=== PATIENT | male | born 1980 | race Caucasian/White ===

== ENCOUNTER 2017-11-15 10:35 | Emergency (ER) | payer MEDICAID ==
[2017-11-15] MEDS ORDERED: fentaNYL 100 MCG/2 ML SDV IM ONE (10:48)
[2017-11-15] MEDS ORDERED: Cyclobenzaprine 10 MG Tab PO ONE (10:48)
--- NOTE | 2017-11-15 10:51 | EDM.PDOC ---
ED HPI GENERAL MEDICAL PROBLEM - General Chief Complaint: Back Pain or Injury Stated Complaint: MEDICAL Time Seen by Provider: 11/15/17 10:45 Source of Information: Reports: Patient, RN Notes Reviewed History Limitations: Reports: No Limitations - History of Present Illness INITIAL COMMENTS - FREE TEXT/NARRATIVE: 37-year-old gentleman brought in by EMS services day for new onset of back pain , he has a history of chronic back pain secondary to lifting injury, the for this particular event he lifted the gait on a trailer sudden onset of back pain predominately on the right side with pain shooting down into the right foot. Uses a combination of Robaxin and naproxen for pain control. Received Toradol during his last exacerbation which did not provide any relief - Related Data Allergies Allergy/AdvReac Type Severity Reaction Status Date / Time No Known Allergies Allergy Verified 11/15/17 10:45 Home Meds: Home Meds Methocarbamol [Robaxin] 500 mg PO BID 11/15/17 [History] Naproxen [Naprosyn] 500 mg PO BID 11/15/17 [History] Past Medical History Musculoskeletal History: Reports: Back Pain, Chronic Social & Family History - Tobacco Use Smoking Status *Q: Never Smoker ED ROS GENERAL - Review of Systems Review Of Systems: See Below Constitutional: Reports: No Symptoms GI/Abdominal: Reports: No Symptoms : Reports: No Symptoms Musculoskeletal: Reports: Back Pain Neurological: Reports: Numbness, Tingling ED EXAM,LOWER BACK PAIN/INJURY - Physical Exam Exam: See Below Exam Limited By: No Limitations General Appearance: Alert, WD/WN, Moderate Distress Respiratory/Chest: No Respiratory Distress Back Exam: Decreased Range of Motion, Muscle Spasm, Paraspinal Tenderness. No: CVA Tenderness (R), CVA Tenderness (L), Vertebral Tenderness Neurological: Straight Leg Raise (R). No: Straight Leg Raise (L) Course - Vital Signs Last Recorded V/S: Last Vital Signs Temp 95.9 F 11/15/17 10:43 Pulse 84 11/15/17 10:43 Resp 18 11/15/17 10:43 BP 145/71 H 11/15/17 10:43 Pulse Ox 95 11/15/17 10:43 - Orders/Labs/Meds Orders: Active Orders 24 hr Category Date Time Status Peripheral IV Care [RC] . DIRECTED Care 11/15/17 11:14 Active Sodium Chloride 0.9% [Saline Flush] Med 11/15/17 11:14 Active 10 ml FLUSH ASDIRECTED PRN Peripheral IV Insertion Adult [OM.PC] Urgent Oth 11/15/17 11:14 Ordered Medication Orders Sodium Chloride (Saline Flush) 10 ml FLUSH ASDIRECTED PRN PRN Reason: Keep Vein Open Meds: Medications Generic Name Dose Route Start Last Admin Trade Name Freq PRN Reason Stop Dose Admin Sodium Chloride 10 ml 11/15/17 11:14 Saline Flush FLUSH ASDIRECTED PRN Keep Vein Open Discontinued Medications Generic Name Dose Route Start Last Admin Trade Name Freq PRN Reason Stop Dose Admin Cyclobenzaprine HCl 10 mg 11/15/17 10:48 11/15/17 10:53 Flexeril PO 11/15/17 10:49 10 mg ONETIME ONE Administration Fentanyl 100 mcg 11/15/17 10:48 11/15/17 10:53 Sublimaze IM 11/15/17 10:49 100 mcg ONETIME ONE Administration Hydromorphone HCl 1 mg 11/15/17 11:14 Dilaudid IVPUSH 11/15/17 11:15 ONETIME ONE Hydromorphone HCl 1 mg 11/15/17 11:56 11/15/17 12:05 Dilaudid IM 11/15/17 11:57 1 mg ONETIME ONE Administration Ketorolac Tromethamine 60 mg 11/15/17 13:06 11/15/17 13:22 Toradol IM 11/15/17 13:07 60 mg ONETIME ONE Administration Lorazepam 1 mg 11/15/17 12:20 11/15/17 12:25 Ativan PO 11/15/17 12:21 1 mg ONETIME ONE Administration Departure - Departure Time of Disposition: 13:52 Disposition: Home, Self-Care 01 Condition: Good Clinical Impression: Sciatic nerve pain Qualifiers: Laterality: right Qualified Code(s): M54.31 - Sciatica, right side - Discharge Information Forms: ED Department Discharge Additional Instructions: Use ibuprofen as needed for baseline pain control, use hydrocodone as needed for breakthrough pain, please follow-up with your primary care provider next 3- 5 days for reevaluation consider physical therapy - My Orders Last 24 Hours: My Active Orders 11/15/17 11:14 Peripheral IV Care [RC] . DIRECTED Sodium Chloride 0.9% [Saline Flush] 10 ml FLUSH ASDIRECTED PRN Peripheral IV Insertion Adult [OM.PC] Urgent - Assessment/Plan Last 24 Hours: My Active Orders 11/15/17 11:14 Peripheral IV Care [RC] . DIRECTED Sodium Chloride 0.9% [Saline Flush] 10 ml FLUSH ASDIRECTED PRN Peripheral IV Insertion Adult [OM.PC] Urgent Plan: Assessment Acuity = acute on chronic Site and laterality = right sciatic nerve pain exacerbation Etiology = unclear etiology Manifestations = none Location of injury = Home Lab values = none Plan Did get good improvement with combination Toradol, fentanyl, Dilaudid, Ativan, Flexeril, plan is discharge home hydrocodone 5/325 one tab by mouth 3 times a day when necessary provided total #6 plan is follow-up primary care next 3-5 days for reevaluation consider physical therapy continue with ibuprofen for baseline pain control This note was dictated using [employer] voice recognition software please call with any questions on syntax or grammar.
[2017-11-15] MEDS ORDERED: HYDROmorphone 1 MG/ML Syringe IVPUSH ONE (11:14)
[2017-11-15] MEDS ORDERED: Sodium Chloride 0.9% 10 ML Syringe FLUSH PRN (11:14)
[2017-11-15] MEDS ORDERED: HYDROmorphone 1 MG/ML Syringe IM ONE (11:56)
[2017-11-15] MEDS ORDERED: LORazepam 1 MG Tab PO ONE (12:20)
[2017-11-15] MEDS ORDERED: Ketorolac 60 MG/2 ML SDV IM ONE (13:06)
== END 2017-11-15 14:46 | disposition home or self-care (01) ==
LOC: JP.ED 10:35
DX: M54.31 Sciatica, right side (principal)
CPT/HCPCS: 96372; 96374; 99283; A9270; J1170; J1885; J3010